=== PATIENT | female | born 1945 | race Caucasian/White ===

== ENCOUNTER 2019-06-05 22:15 | Emergency (ER) | payer MEDICARE, OTHER ==
[~2019-06-05] VITALS: Ht 165.1 cm; Wt 56.2 kg
[2019-06-05] MEDS ORDERED: famotidine 20mg tablet PO ONE (22:40)
[2019-06-05] MEDS ORDERED: diphenhydrAMINE 25mg capsule PO ONE (22:40)
[2019-06-05] MEDS ORDERED: acetaminophen 325mg tablet PO ONE (22:40)
[2019-06-05] MEDS ORDERED: dexamethasone 4mg tablet PO ONE (22:40)
[2019-06-06] MEDS ORDERED: HYDROcodone/acetaminophen 5mg/325mg tablet PO ONE (00:15)
[2019-06-06 00:53] VITALS: BP 127/76
== END 2019-06-06 01:06 | disposition home or self-care (01) ==
LOC: ER 22:15
DX: T63.441A Toxic effect of venom of bees, accidental (unintentional), initial encounter (principal); Z90.49 Acquired absence of other specified parts of digestive tract; Y92.89 Other specified places as the place of occurrence of the external cause
CPT/HCPCS: 99284; Q0163